=== PATIENT | female | born 1975 | race Caucasian/White ===

== ENCOUNTER 2019-03-31 09:55 | Emergency (ER) | payer MEDICAID ==
[~2019-03-31] VITALS: Ht 154.9 cm; Wt 77.1 kg
[2019-03-31 10:05] VITALS: Ht 154.9 cm; Wt 77.1 kg
[2019-03-31 11:13] VITALS: BP 119/77
== END 2019-03-31 11:13 | disposition home or self-care (01) ==
LOC: ED 09:55
DX: M19.90 Unspecified osteoarthritis, unspecified site (principal); I10 Essential (primary) hypertension
CPT/HCPCS: J1885; Q0092